=== PATIENT | male | born 1940 | race Caucasian/White ===

== ENCOUNTER → 2018-01-02 | Emergency (ER) | payer OTHER ==
[~2018-01-02] VITALS: Ht 175.3 cm; Wt 90.7 kg
[~2018-01-02] MED LIST: ACUPRIL PO; AMBIEN10 MG PO; CIPRO750 MG PO; Colace 100MG PO; NEURONTIN PO; NORVASC10 MG PO; PERCOCET 5/3251 TAB PO; RYBIX ODT50 MG PO
== END | disposition designated cancer center or children's hospital (05) ==
LOC: ER 18:50 → CPU-OBS 18:58
DX: I21.29 ST elevation (STEMI) myocardial infarction involving other sites (principal); R07.89 Other chest pain